=== PATIENT | female | born 1935 | race Caucasian/White ===

== ENCOUNTER 2022-01-18 13:21 | Emergency (ER) | payer OTHER ==
--- NOTE | 2022-01-18 15:24 | RAD REPORT ---
EXAM DESCRIPTION: USExtremity Venous Uni Ltd01/18/2022 3:12 pm CLINICAL HISTORY: left leg pain and swelling. COMPARISON: None FINDINGS: Left common femoral, superficial femoral, popliteal and posterior tibial veins are compre ssible and demonstrate augmentation. Doppler demonstrates good flow. Grayscale, color and spectral analysis performed on all vessels IMPRESSION: No evidence of deep venous thrombosis involving the left lower extremity.
[2022-01-18 15:56] LABS: Absolute Lymphocytes (CBC) 0.6 K/uL (0.7-4.9); Hematocrit 36.2 % (36.0-45.0); Lymphocytes % 6.9 % (15.3-44.8); MCV 87.4 fL (80-100); MPV 7.4 fL (7.6-11.3); RBC Red Blood Cell Count 4.14 M/uL (3.86-4.86)
[2022-01-18 16:00] LABS: Protime INR 1.03
[2022-01-18 16:13] LABS: Potassium 3.9 mmol/L (3.5-5.1)
--- NOTE | 2022-01-18 18:54 | ER ---
Nurse's Notes [facility] Name: Ángela Arellano Age: 86 yrs Sex: Female : 1935 Arrival Date: 01/18/2022 Time: 13:22 Bed 10 Private MD: Moy Zaragoza Diagnosis: Cellulitis of left lower limb Presentation: 01/18 14:37 Chief complaint: Patient states: Had bypass in August, vein harvested from L inner ph thigh, had ongoing swelling afterwards and recently had surgery to drain fluid from area, states that now the wound has started draining and looking red. Coronavirus screen: Vaccine status: Patient reports receiving the 2nd dose of the covid vaccine. Ebola Screen: No symptoms or risks identified at this time. Initial Sepsis Screen: Does the patient meet any 2 criteria? No. Patient's initial sepsis screen is negative. Does the patient have a suspected source of infection? Yes: Skin breakdown/wound. Risk Assessment: Do you want to hurt yourself or someone else? Patient reports no desire to harm self or others. Onset of symptoms was January 18, 2022. 14:37 Method Of Arrival: Ambulatory ph 14:37 Acuity: NIKOLE 3 ph Triage Assessment: 19:27 General: Appears in no apparent distress. comfortable, well groomed, Behavior is calm, ph cooperative, appropriate for age, Denies fever. Pain: Complains of pain in medial aspect of left thigh Pain does not radiate. Neuro: No deficits noted. Derm: Skin is pink, warm \T\ dry. Musculoskeletal: Swelling present in left leg. Historical: - Allergies: 18:45 Lisinopril; ph - PMHx: 18:46 Hypercholesterolemia; Hypertensive disorder; ph - PSHx: 18:45 Coronary artery bypass graft; ph - Immunization history:: Adult Immunizations up to date. - Social history:: Smoking status: Patient denies any tobacco usage or history of. Screenin:46 Abuse screen: Denies threats or abuse. Denies injuries from another. Nutritional ph screening: No deficits noted. Tuberculosis screening: No symptoms or risk factors identified. Fall Risk None identified. Assessment: 19:28 General: SEE TRIAGE ASSESSMENT. ph 19:45 Reassessment: Patient appears in no apparent distress at this time. Patient states lp1 readiness for discharge. Vital Signs: 14:40 BP 165 / 56; Pulse 54; Resp 18; Temp 97.6; Pulse Ox 97% on R/A; Weight 88.45 kg; Height ph 5 ft. 8 in. (172.72 cm); 14:40 Body Mass Index 29.65 (88.45 kg, 172.72 cm) ph ED Course: 13:22 Patient arrived in ED. am2 13:23 Moy Zaragoza MD is Private Physician. am2 13:35 River Leal DO is Attending Physician. ms3 14:42 Pravin Downing PA is PHCP. cp 14:51 Triage completed. ph 15:13 US Extremity Venous Unilateral Ltd In Process Unspecified. EDMS 18:42 Ileana Cooper RN is Primary Nurse. ph 18:46 Arm band placed on Patient placed in an exam room. ph 18:46 Patient has correct armband on for positive identification. ph 19:06 Primary Nurse role handed off by Ileana Cooper RN mw2 19:27 Ileana Cooper RN is Primary Nurse. ph 19:30 No provider procedures requiring assistance completed. lp1 19:45 IV discontinued, No redness/swelling at site. Pressure dressing applied. lp1 Administered Medications: 18:03 CANCELLED (Physician Discretion): Clindamycin 900 mg IVPB once over 30 mins; (mix in 50 cp mL) 19:04 Drug: fentaNYL (PF) 25 mcg Route: IVP; Site: left antecubital; tp1 19:34 Follow up: Response: No adverse reaction; Pain is decreased ph 19:06 Drug: Doxycycline 200 mg Route: PO; tp1 19:33 Follow up: Response: No adverse reaction ph Medication: 18:46 VIS not applicable for this client. ph Outcome: 18:54 Discharge ordered by . cp 19:50 Discharged to home via wheelchair. lp1 19:50 Condition: good 19:50 Discharge instructions given to patient, Instructed on discharge instructions, follow up and referral plans. medication usage, Demonstrated understanding of instructions, follow-up care, medications, Prescriptions given X 2. 19:53 Patient left the ED. lp1 Signatures: Dispatcher [employer] EDMS Charito Barry RN RN lp1 Ileana Cooper RN RN Pravin Downing PA PA cp Carolyn Andrews am2 Neeraj Mosquera mw2 River Leal DO DO ms3 Anushka Jordan, RN RN tp1 Corrections: (The following items were deleted from the chart) 18:46 18:45 Allergies: No Known Allergies; ph ph 18:46 18:45 PSHx: cardiac bypass; ph ph 01/19 03:20 03:20 No provider procedures requiring assistance completed. lp1 lp1
--- NOTE | 2022-01-18 18:54 | EDPHYS ---
Physician Documentation [facility] Name: Ángela Arellano Age: 86 yrs Sex: Female : 1935 Arrival Date: 01/18/2022 Time: 13:22 Bed 10 Private MD: Moy Zaragoza ED Physician River Leal HPI: 01/18 14:50 This 86 yrs old Female presents to ER via Ambulatory with complaints of Leg Pain - cp infection. 14:50 The patient presents with swelling, tenderness. The complaints affect the medial aspect cp of left thigh. Associated signs and symptoms: Pertinent positives: calf tenderness, swelling, warmth, Pertinent negatives fever, numbness. Treatment prior to arrival includes: dressing change and wound packing. 14:50 Patient reports history of cardiac bypass surgery with left upper leg vein harvesting cp in August 2021. Patient reports she developed fluid collection in surgical area of left leg that was recently drained after becoming infected. Patient reports home health has been seeing her twice weekly to dress and pack wound. Patient has not been taking antibiotics recently and reports increasing redness and swelling to right leg over past couple days. Historical: - Allergies: 18:45 Lisinopril; ph - PMHx: 18:46 Hypercholesterolemia; Hypertensive disorder; ph - PSHx: 18:45 Coronary artery bypass graft; ph - Immunization history:: Adult Immunizations up to date. - Social history:: Smoking status: Patient denies any tobacco usage or history of. ROS: 14:55 Constitutional: Negative for body aches, chills, fever, poor PO intake. cp 14:55 Eyes: Negative for injury, pain, redness, and discharge. cp 14:55 ENT: Negative for drainage from ear(s), ear pain, sore throat, difficulty swallowing, difficulty handling secretions. 14:55 Cardiovascular: Negative for chest pain, palpitations. 14:55 Respiratory: Negative for cough, shortness of breath, wheezing. 14:55 Abdomen/GI: Negative for abdominal pain, nausea, vomiting, and diarrhea. 14:55 Back: Negative for pain at rest, pain with movement. 14:55 MS/extremity: Positive for pain, swelling, tenderness, of the medial aspect of left thigh. 14:55 Neuro: Negative for altered mental status, dizziness, headache, weakness. 14:55 All other systems are negative. Exam: 15:00 Constitutional: The patient appears in no acute distress, alert, awake, cp non-diaphoretic, non-toxic, well developed, well nourished, uncomfortable. 15:00 Head/Face: Normocephalic, atraumatic. cp 15:00 Chest/axilla: Inspection: normal. 15:00 Cardiovascular: Rate: bradycardic, Rhythm: regular, JVD: is not appreciated. 15:00 Respiratory: the patient does not display signs of respiratory distress, Respirations: normal, no use of accessory muscles, no retractions, labored breathing, is not present, Breath sounds: are clear throughout, no decreased breath sounds, no stridor, no wheezing. 15:00 Abdomen/GI: Exam negative for discomfort, distension, guarding, Inspection: abdomen appears normal. 15:00 Back: pain, is absent, ROM is normal. 15:00 Musculoskeletal/extremity: Extremities: grossly normal except: noted in the left leg: erythema, pain, swelling, tenderness, Perfusion: the extremity is normally perfused throughout. 15:00 Skin: small open, packed wound medial aspect left upper leg with scant drainage. 16:20 ECG was reviewed by the Attending Physician. Vital Signs: 14:40 BP 165 / 56; Pulse 54; Resp 18; Temp 97.6; Pulse Ox 97% on R/A; Weight 88.45 kg; Height ph 5 ft. 8 in. (172.72 cm); 14:40 Body Mass Index 29.65 (88.45 kg, 172.72 cm) ph MDM: 18:54 Patient medically screened. 18:54 Data reviewed: vital signs, nurses notes, lab test result(s), EKG, radiologic studies, cp ultrasound. 18:54 Test interpretation: by ED physician or midlevel provider: ECG. 01/18 14:43 Order name: Basic Metabolic Panel; Complete Time: 16:26 01/18 16:26 Interpretation: Normal except: NA 135; BUN 23; GFR 46. 01/18 14:43 Order name: CBC with Diff; Complete Time: 16:26 01/18 16:26 Interpretation: Normal except: HGB 11.9; RDW 16.6; MPV 7.4; DEBORAH% 84.0; LYM% 6.9; LYMA cp 0.6. 01/18 14:43 Order name: NT PRO-BNP; Complete Time: 16:26 cp 01/18 14:43 Order name: PT-INR; Complete Time: 16:26 cp 01/18 14:43 Order name: Wound Culture cp 01/18 14:43 Order name: US Extremity Venous Unilateral Ltd; Complete Time: 16:26 cp 01/18 14:43 Order name: EKG; Complete Time: 14:53 cp 01/18 14:43 Order name: EKG - Nurse/Tech; Complete Time: 17:00 cp 01/18 14:43 Order name: IV Saline Lock; Complete Time: 17:00 cp 01/18 14:43 Order name: Labs collected and sent; Complete Time: 17:00 cp 01/18 14:43 Order name: O2 Per Protocol; Complete Time: 18:47 cp 01/18 14:43 Order name: O2 Sat Monitoring; Complete Time: 18:47 cp EC:20 Rate is 64 beats/min. Rhythm is regular. MN interval is prolonged at 200 msec. QRS cp interval is normal. QT interval is normal. T waves are Inverted in lead aVR. Interpreted by me. Reviewed by me. Administered Medications: 18:03 CANCELLED (Physician Discretion): Clindamycin 900 mg IVPB once over 30 mins; (mix in 50 cp mL) 19:04 Drug: fentaNYL (PF) 25 mcg Route: IVP; Site: left antecubital; tp1 19:34 Follow up: Response: No adverse reaction; Pain is decreased ph 19:06 Drug: Doxycycline 200 mg Route: PO; tp1 19:33 Follow up: Response: No adverse reaction ph Disposition: 22:07 Co-signature as Attending Physician, River GARZA was immediately available on-site ms3 in the Emergency Department for consultation in the care of the patient.. Disposition Summary: 01/18/22 18:54 Discharge Ordered Location: Home cp Problem: new cp Symptoms: have improved cp Condition: Stable cp Diagnosis - Cellulitis of left lower limb cp Followup: cp - With: Private Physician - When: 2 - 3 days - Reason: Wound Recheck Discharge Instructions: - Discharge Summary Sheet cp - Cellulitis, Adult cp Forms: - Medication Reconciliation Form cp - Thank You Letter cp - Antibiotic Education cp - Prescription Opioid Use cp Prescriptions: - Doxycycline Hyclate 100 mg Oral Tablet - take 1 tablet by ORAL route every 12 hours; 20 tablet; Refills: 0, Product cp Selection Permitted - Ibuprofen 800 mg Oral Tablet - take 1 tablet by ORAL route every 8 hours As needed take with food; 30 tablet; cp Refills: 0, Product Selection Permitted Signatures: Dispatcher [employer] Ileana Botello RN RN ph Pravin Downing PA PA cp River Leal DO DO ms3 Anushka Jordan RN RN tp1 Corrections: (The following items were deleted from the chart) 18:03 15:58 Clindamycin 900 mg IVPB once over 30 mins; (mix in 50 mL) ordered. cp cp 18:46 18:45 Allergies: No Known Allergies; ph ph 18:46 18:45 PSHx: cardiac bypass; ph ph 18:47 14:43 Cardiac monitoring ordered. cp ph
[2022-01-18] MEDS ORDERED: FENTANYL CITR 100 MCG/2 ML ONE ×2 (19:09→19:23)
[2022-01-18] MEDS ORDERED: DOXYCYCLINE 100 MG CAP PO ONE ×2 (19:09→19:24)
[2022-01-18 20:54] VITALS: BP 165/56; TEMP 97.6; O2SAT 97
--- NOTE | 2022-01-19 08:13 | EKG ---
Test Date: 2022-01-18 Test Time: 16:15:49 Radio Operator Ground: GABRIELLE MEASUREMENT RESULTS: Intervals: Rate: 64 NE: 200 QRSD: 78 QT: 392 QTc: 404 [place]: P: 68 NE: 200 QRS: 76 T: 91 INTERPRETIVE STATEMENTS: Sinus rhythm with marked sinus arrhythmia Nonspecific ST abnormality Abnormal ECG No previous ECG available for comparison Electronically Signed On 01-19-22 08:11:07 CDT by Afshin Cheung
== END 2022-01-18 19:53 | disposition home or self-care (01) ==
LOC: ER 13:21
DX: L03.116 Cellulitis of left lower limb (principal); I10 Essential (primary) hypertension; Z88.8 Allergy status to other drugs, medicaments and biological substances; Z95.1 Presence of aortocoronary bypass graft
CPT/HCPCS: 93005; 87070; 85025; 80048; 36415; 87205; 85610; 83880; 93971; 96374; 99283; J3010 ×2; 87077; 87186